=== PATIENT | female | born 1930 | race Two or more races ===

== ENCOUNTER 2017-01-14 20:13 | Emergency (ER) | payer MEDICARE, MEDICAID ==
--- NOTE | 2017-01-15 01:37 | ER Document Report ---
ED Extremity Problem, Lower - General Chief Complaint: Foot Injury Stated Complaint: LEFT FOOT INJURY Notes: The patient is an 86-year-old female, PMHx DM, who presents with left toe pain after a heavy object fell on her left great toe earlier today. She is noticing swelling, but denies open wounds, numbness or tingling. TRAVEL OUTSIDE OF THE [place] IN LAST 30 DAYS: No - Related Data Allergies/Adverse Reactions: Penicillins Allergy (Verified 02/15/16 12:10) Past Medical History - General Information source: Patient - Social History Smoking Status: Never Smoker Family History: DM - Past Medical History Cardiac Medical History: Reports: Hx Congestive Heart Failure - History of CHF; no evidence of CHF on January 2016 echocardiogram., Hx Hypercholesterolemia, Hx Hypertension Denies: Hx DVT, Hx Heart Attack, Hx Pulmonary Embolism Pulmonary Medical History: Denies: Hx Asthma, Hx COPD, Hx Tuberculosis Neurological Medical History: Denies: Hx Seizures Endocrine Medical History: Reports: Hx Diabetes Mellitus Type 1, Hx Diabetes Mellitus Type 2, Hx Hypothyroidism. Denies: Hx Hyperthyroidism Renal/ Medical History: Denies: Hx Peritoneal Dialysis GI Medical History: Denies: Hx Cirrhosis, Hx Gastroesophageal Reflux Disease, Hx Hepatitis Musculoskeltal Medical History: Reports Hx Arthritis Skin Medical History: Denies Hx Eczema, Denies Hx Psoriasis Psychiatric Medical History: Denies: Hx Depression Infectious Medical History: Denies: Hx Hepatitis Past Surgical History: Reports: Hx Section, Hx Kidney (Renal Surgery) - Stent - Immunizations Hx Diphtheria, Pertussis, Tetanus Vaccination: No Hx Pneumococcal Vaccination: 09/28/14 Review of Systems - Review of Systems Notes: REVIEW OF SYSTEMS: CONSTITUTIONAL: -fevers, -chills EENT: -eye pain, -difficulty swallowing, -nasal congestion CARDIOVASCULAR:-chest pain, -syncope. RESPIRATORY: -cough, -SOB GASTROINTESTINAL: -abdominal pain, - nausea, -vomiting, -diarrhea GENITOURINARY: -dysuria, -hematuria MUSCULOSKELETAL: +left great toe pain, -back pain, -neck pain SKIN: -rash or skin lesions. HEMATOLOGIC: -easy bruising or bleeding. LYMPHATIC: -swollen, enlarged glands. NEUROLOGICAL: -altered mental status or loss of consciousness, -headache, - neurologic symptoms PSYCHIATRIC: -anxiety, -depression. ALL OTHER SYSTEMS REVIEWED AND NEGATIVE. Physical Exam - Vital signs Vitals: Temp Pulse Resp BP Pulse Ox 97.6 F 76 18 148/53 H 94 01/15/17 01:54 01/15/17 01:54 01/15/17 01:54 01/15/17 01:54 01/15/17 01:54 - Notes Notes: PHYSICAL EXAMINATION: GENERAL: Well-appearing, well-nourished and in no acute distress. HEAD: Atraumatic, normocephalic. EYES: Pupils equal round and reactive to light, extraocular movements intact, sclera anicteric, conjunctiva are normal. ENT: nares patent, oropharynx clear without exudates. Moist mucous membranes. NECK: Normal range of motion, supple without lymphadenopathy LUNGS: Breath sounds clear to auscultation bilaterally and equal. No wheezes rales or rhonchi. HEART: Regular rate and rhythm without murmurs ABDOMEN: Soft, nontender, normoactive bowel sounds. No guarding, no rebound. No masses appreciated. EXTREMITIES: Left great toe swelling and ecchymosis at distal phalanx. Normal range of motion, no pitting or edema. No cyanosis. NEUROLOGICAL: Cranial nerves grossly intact. Normal speech, normal gait. Normal sensory, motor, and reflex exams. PSYCH: Normal mood, normal affect. SKIN: Warm, Dry, normal turgor, no rashes or lesions noted. Course - Re-evaluation Re-evalutation: Patient with distal left first toe fracture. No open wounds. Instructed daughter and patient about symptomatic treatment and following up with orthopedics. - Vital Signs Vital signs: Temp Pulse Resp BP Pulse Ox 97.6 F 76 18 148/53 H 94 01/15/17 01:54 01/15/17 01:54 01/15/17 01:54 01/15/17 01:54 01/15/17 01:54 - Diagnostic Test Radiology reviewed: Image reviewed, Reports reviewed Radiology results interpreted by me: Fracture of the distal phalanx of the left great toe. Discharge - Discharge Clinical Impression: Toe fracture, left Qualifiers: Encounter type: initial encounter Toe: great toe Fracture type: closed Phalanx : distal Fracture alignment: nondisplaced Qualified Code(s): S92.425A - Nondisplaced fracture of distal phalanx of left great toe, initial encounter for closed fracture Condition: Good Disposition: HOME, SELF-CARE Additional Instructions: Fractured Toe You have fractured your toe. Although this fracture doesn't need a cast or splint, emergency evaluation was needed to assess the straightness of the bones and joints. Reduction ("setting") is necessary for toe fractures which are crooked or twisted. A toe fracture will heal in about three weeks. Usually, the fractured toe is taped to the next toe. The second toe acts as a moving splint to protect the broken one. Ice and elevation help during the first 48 hours. You may need crutches at first if walking is painful. When you begin walking, be careful NOT to do things that hurt. If weight bearing is not comfortable within a few days, you may require a special shoe, walking boot, or cast. Call the doctor or return at once if severe swelling, severe pain, or numbness develop in the toe, or if you suspect you may have re-injured it. Referrals: NANCI LAZO MD [Primary Care Provider] - Follow up as needed NATALIIA CLEVELAND MD [ACTIVE STAFF] - Follow up as needed
[2017-01-15 01:56] VITALS: BP 148/53
== END 2017-01-15 01:54 | disposition home or self-care (01) ==
LOC: ER 20:13
DX: S92.425A Nondisplaced fracture of distal phalanx of left great toe, initial encounter for closed fracture (principal); E11.9 Type 2 diabetes mellitus without complications; M79.675 Pain in left toe(s); M79.89 Other specified soft tissue disorders; W22.8XXA Striking against or struck by other objects, initial encounter
CPT/HCPCS: 99283

== ENCOUNTER 2017-05-10 12:53 | Observation (INO) | payer MEDICARE, MEDICAID ==
--- NOTE | 2017-05-10 13:16 | ER Document Report ---
ED Medical Screen (RME) - General Chief Complaint: Shortness Of Breath Stated Complaint: DIFFICULTY BREATHING Time Seen by Provider: 05/10/17 13:14 Mode of Arrival: Wheelchair Information source: Patient - p TRAVEL OUTSIDE OF THE [place] IN LAST 30 DAYS: No - HPI Patient complains to provider of: sob Onset: Yesterday - pt with h/o CHF with SOB and dyspnea starting yesterday with exacerbation today - Related Data Allergies/Adverse Reactions: Penicillins Allergy (Verified 02/15/16 12:10) Past Medical History - Social History Chew tobacco use (# tins/day): No Frequency of alcohol use: None Drug Abuse: None - Past Medical History Cardiac Medical History: Reports: Hx Congestive Heart Failure - History of CHF; no evidence of CHF on January 2016 echocardiogram., Hx Hypercholesterolemia, Hx Hypertension Denies: Hx DVT, Hx Heart Attack, Hx Pulmonary Embolism Pulmonary Medical History: Denies: Hx Asthma, Hx COPD, Hx Tuberculosis Neurological Medical History: Denies: Hx Seizures Endocrine Medical History: Reports: Hx Diabetes Mellitus Type 1, Hx Diabetes Mellitus Type 2, Hx Hypothyroidism. Denies: Hx Hyperthyroidism Renal/ Medical History: Denies: Hx Peritoneal Dialysis GI Medical History: Denies: Hx Cirrhosis, Hx Gastroesophageal Reflux Disease, Hx Hepatitis Musculoskeltal Medical History: Reports Hx Arthritis Skin Medical History: Denies Hx Eczema, Denies Hx Psoriasis Psychiatric Medical History: Denies: Hx Depression Infectious Medical History: Denies: Hx Hepatitis Past Surgical History: Reports: Hx Section, Hx Kidney (Renal Surgery) - Stent - Immunizations Hx Diphtheria, Pertussis, Tetanus Vaccination: No Physical Exam - Vital signs Vitals: Temp Pulse Resp BP Pulse Ox 97.7 F 68 40 H 181/72 H 96 05/10/17 12:54 05/10/17 12:54 05/10/17 12:54 05/10/17 12:54 05/10/17 12:54 Course - Vital Signs Vital signs: Temp Pulse Resp BP Pulse Ox 97.7 F 68 40 H 181/72 H 96 05/10/17 12:54 05/10/17 12:54 05/10/17 12:54 05/10/17 12:54 05/10/17 12:54
--- NOTE | 2017-05-10 13:27 | ER Document Report ---
ED Respiratory Problem - General Chief Complaint: Shortness Of Breath Stated Complaint: DIFFICULTY BREATHING Time Seen by Provider: 05/10/17 13:14 Mode of Arrival: Wheelchair Information source: Patient TRAVEL OUTSIDE OF THE [place] IN LAST 30 DAYS: No - HPI Patient complains to provider of: Short of breath Onset: This afternoon Duration: Better Initiating Event: Other - @ [facility], WAS IN [facility] Quality of pain: No pain Context: Hx CHF Associated symptoms: Extertional dyspnea, Short of breath. denies: Cough, Fever - Related Data Allergies/Adverse Reactions: Penicillins Allergy (Verified 05/10/17 13:56) Home Medications: Current Home Medications Aspirin [Aspirin EC] 81 mg PO DAILY 05/10/17 [History] Glimepiride [Glimepiride] 1 mg PO DAILY 05/10/17 [History] Levothyroxine Sodium [Synthroid 0.1 mg Tablet] 88 mcg PO DAILY 05/10/17 [History ] Rosuvastatin Calcium [Crestor 20 mg Tablet] 20 mg PO DAILY 05/10/17 [History] Past Medical History - General Information source: Patient - p - Social History Smoking Status: Never Smoker Chew tobacco use (# tins/day): No Frequency of alcohol use: None Drug Abuse: None Family History: DM - Past Medical History Cardiac Medical History: Reports: Hx Congestive Heart Failure - History of CHF; no evidence of CHF on January 2016 echocardiogram., Hx Hypercholesterolemia, Hx Hypertension Denies: Hx DVT, Hx Heart Attack, Hx Pulmonary Embolism Pulmonary Medical History: Denies: Hx Asthma, Hx COPD, Hx Tuberculosis Neurological Medical History: Denies: Hx Seizures Endocrine Medical History: Reports: Hx Diabetes Mellitus Type 1, Hx Diabetes Mellitus Type 2, Hx Hypothyroidism. Denies: Hx Hyperthyroidism Renal/ Medical History: Denies: Hx Peritoneal Dialysis GI Medical History: Denies: Hx Cirrhosis, Hx Gastroesophageal Reflux Disease, Hx Hepatitis Musculoskeltal Medical History: Reports Hx Arthritis Skin Medical History: Denies Hx Eczema, Denies Hx Psoriasis Psychiatric Medical History: Denies: Hx Depression Infectious Medical History: Denies: Hx Hepatitis Past Surgical History: Reports: Hx Section, Hx Kidney (Renal Surgery) - Stent - Immunizations Hx Diphtheria, Pertussis, Tetanus Vaccination: No Hx Pneumococcal Vaccination: 09/28/14 Review of Systems - Review of Systems Constitutional: No symptoms reported. denies: Diaphoresis EENT: No symptoms reported Cardiovascular: See HPI, Dyspnea Respiratory: See HPI, Short of breath Gastrointestinal: No symptoms reported Female Genitourinary: Post menopausal Musculoskeletal: No symptoms reported Skin: No symptoms reported Neurological/Psychological: No symptoms reported Physical Exam - Vital signs Vitals: Temp Pulse Resp BP Pulse Ox 97.7 F 68 40 H 181/72 H 96 05/10/17 12:54 05/10/17 12:54 05/10/17 12:54 05/10/17 12:54 05/10/17 12:54 Interpretation: Tachypneic. No: Tachycardic, Hypoxic, Febrile - General General appearance: Alert, Anxious In distress: None - Respiratory Respiratory status: No respiratory distress, Tachypnea Chest status: Nontender Breath sounds: Rales - FEW, BIBASILAR. No: Wheezing - Cardiovascular Rhythm: Regular Heart sounds: Normal auscultation Murmur: No - Abdominal Inspection: Normal Distension: No distension Bowel sounds: Hypoactive - Extremities General upper extremity: Normal inspection General lower extremity: Edema - 1+ BILAT.. No: Normal inspection - Neurological Neuro grossly intact: Yes Cognition: Normal Orientation: AAOx4 - Psychological Associated symptoms: Normal affect, Normal mood - Skin Skin Temperature: Warm Skin Moisture: Dry Skin Color: Normal Skin Turgor: Elastic Course - Vital Signs Vital signs: Temp Pulse Resp BP Pulse Ox 97.7 F 68 23 H 154/66 H 95 05/10/17 12:54 05/10/17 12:54 05/10/17 13:54 05/10/17 13:54 05/10/17 13:54 - Laboratory Result Diagrams: 05/10/17 13:20 05/10/17 13:20 Laboratory results interpreted by me: 05/10/17 05/10/17 05/10/17 13:20 13:20 13:20 Hgb 11.6 L MCHC 31.6 L RDW 15.5 H BUN 38 H Est GFR (Non-Af Amer) 51 L Glucose 145 H NT-Pro-B Natriuret Pep 1720 H - Diagnostic Test Radiology reviewed: Image reviewed, Reports reviewed - EKG Interpretation by Me EKG shows normal: Sinus rhythm, Rose, Intervals, QRS Complexes, ST-T Waves Rate: Normal Rhythm: NSR - Consults DR. CRAIG Time consulted: 15:42 Consulted provider: will come to ER Discharge - Discharge Clinical Impression: CHF (congestive heart failure) Qualifiers: Congestive heart failure type: unspecified congestive heart failure type Congestive heart failure chronicity: acute on chronic Qualified Code(s): I50.9 - Heart failure, unspecified Dyspnea Qualifiers: Dyspnea type: shortness of breath Qualified Code(s): R06.02 - Shortness of breath; R06.00 - Dyspnea, unspecified; R06.01 - Orthopnea Condition: Fair Disposition: ADMITTED OBSERVATION Admitting Provider: Hospitalist Unit Admitted: Telemetry
[2017-05-10 13:34] LABS: ABSOLUTE BASOPHILS # (AUTO) 0.1 10^3/uL (0.0-0.2); ABSOLUTE EOSINOPHILS # (AUTO) 0.1 10^3/uL (0.0-0.6); ABSOLUTE LYMPHOCYTES (AUTO) 1.1 10^3/uL (0.5-4.7); ABSOLUTE MONOCYTES (AUTO) 0.7 10^3/uL (0.1-1.4); ABSOLUTE NEUT (AUTO) 4.4 10^3/uL (1.7-8.2); BASOPHILS % (AUTO) 1.2 % (0-2); EOSINOPHILS % (AUTO) 2.2 % (0-6); HEMATOCRIT 36.9 % (36.0-47.0); HEMOGLOBIN 11.6 g/dL (12.0-15.5); HGB HCT DIFFERENCE -2.1; LYMPHOCYTES % (AUTO) 17.6 % (13-45); MEAN CORPUSCULAR HEMOGLOBIN 27.7 pg (27.0-33.4); MEAN CORPUSCULAR HGB CONC 31.6 g/dL (32.0-36.0); MEAN CORPUSCULAR VOLUME 88 fl (80-97); MONOCYTES % (AUTO) 10.9 % (3-13); RED BLOOD COUNT 4.21 10^6/uL (3.72-5.28); RED CELL DISTRIBUTION WIDTH 15.5 % (11.5-14.0); SEGMENTED NEUTROPHILS % (AUTO) 68.1 % (42-78); WHITE BLOOD COUNT 6.5 10^3/uL (4.0-10.5)
[2017-05-10 13:36] LABS: APPEARANCE,URINE SLIGHTLY-CLOUDY; BILIRUBIN,URINE NEGATIVE (NEGATIVE); GLUCOSE, URINE NEGATIVE (NEGATIVE); KETONES,URINE NEGATIVE (NEGATIVE); LEUKOCYTE ESTERASE,URINE NEGATIVE (NEGATIVE); NITRITE,URINE NEGATIVE (NEGATIVE); PROTEIN,URINE NEGATIVE (NEGATIVE); URINE SPECIFIC GRAVITY 1.005; UROBILINOGEN,URINE NEGATIVE mg/dL (<2.0)
[2017-05-10 13:56] LABS: ALANINE AMINOTRANSFERASE 25 U/L (9-52); ALBUMIN 4.4 g/dL (3.5-5.0); ALKALINE PHOSPHATASE 55 U/L (38-126); ANION GAP 11 (5-19); ASPARTATE AMINO TRANSFERASE 23 U/L (14-36); BILIRUBIN,DIRECT 0.4 mg/dL (0.0-0.4); BILIRUBIN,TOTAL 0.6 mg/dL (0.2-1.3); BLOOD UREA NITROGEN 38 mg/dL (7-20); CARBON DIOXIDE 27 mmol/L (22-30); CHLORIDE 102 mmol/L (98-107); CREATININE RESULT 1.02 mg/dL (0.52-1.25); GLUCOSE 145 mg/dL (75-110); POTASSIUM 4.7 mmol/L (3.6-5.0); SODIUM 139.8 mmol/L (137-145); TOTAL PROTEIN 8.1 g/dL (6.3-8.2)
--- NOTE | 2017-05-10 13:57 | RADIOLOGY REPORT (SQ) ---
EXAM DESCRIPTION: CHEST SINGLE VIEW COMPLETED DATE/TIME: 05/10/2017 1:48 pm REASON FOR STUDY: dyspnea COMPARISON: June 2016 EXAM PARAMETERS: NUMBER OF VIEWS: One view. TECHNIQUE: Single frontal radiographic view of the chest acquired. RADIATION DOSE: NA LIMITATIONS: Patient has made a shallow inspiration. FINDINGS: LUNGS AND PLEURA: No opacities, masses or pneumothorax. No pleural effusion. MEDIASTINUM AND HILAR STRUCTURES: No masses. Contour normal. HEART AND VASCULAR STRUCTURES: Cardiac silhouette is enlarged. Tortuous thoracic aorta is again iden tified. BONES: No acute findings. HARDWARE: None in the chest. OTHER: No other significant finding. IMPRESSION: Cardiomegaly. No acute changes. TECHNICAL DOCUMENTATION: JOB ID: [id number]
[2017-05-10] MEDS ORDERED: ACETAMINOPHEN 325 MG TABLET PO PRN (16:51)
[2017-05-10] MEDS ORDERED: IPRATROPIUM/ALBUTEROL 0.5-2.5 MG/3 ML AMPUL NEB PRN (16:51)
[2017-05-10] MEDS ORDERED: MAGNESIUM HYDROXIDE SUSP 30 ML UDCUP PO PRN (16:51)
[2017-05-10] MEDS ORDERED: ONDANSETRON HCL INJ/PF 4 MG/2 ML SDV IV PRN (16:51)
[2017-05-10] MEDS ORDERED: INSULIN LISPRO 100 UNIT/ML 3 ML VIAL SUBCUT PRN (17:20)
[2017-05-10] MEDS ORDERED: DEXTROSE 40% GEL 15 GM TUBE PO PRN ×2 (17:20)
[2017-05-10] MEDS ORDERED: GLUCAGON,HUMAN RECOMB 1 MG INJ IM PRN (17:20)
[2017-05-10] MEDS ORDERED: DEXTROSE 50%-WATER 25 GM/50 ML DISP.SYRIN IV PRN ×2 (17:20)
--- NOTE | 2017-05-10 17:27 | PDOC H&P ---
History of Present Illness Admission Date/PCP: 05/10/17 16:18 NANCI LAZO MD Patient complains of: sudden onset SOA History of Present Illness: CHRIS SAM is a 87 year old female presents from religion with sudden onset of heat in center of her chest "like I was on fire" radiating into her throat/ neck with asct'd diaphoresis and SOA with increased WOB. she denies palpitations, fevers/chills, cough, congestion, arm pain, numb/tingling. she had a negative stress test last year. she reports recent travel to [facility] by cruise ship in March, otherwise she is normally quite active doing her own cooking, cleaning and shopping in fact she was at the beach for hours [place] evening to witness several baptisms with her religion. she carries a diagnosis of and previous admissions for CHF but the only 2 echo we have on file show well preserved EF and LV function but do show at least mod TR and mod- sv pulm HTN. She has a chronically elevated BNP as a result, and is actually lower than her baseline today. due to her advanced age and risk factors, we were asked to admit for observation. Her CXR shows nothing acute, ecg no changes, no troponin completed and rest of her labs are at baseline or better. Past Medical History Cardiac Medical History: Reports: Congestive Heart Failure - History of CHF; no evidence of CHF on January 2016 or 2012 echocardiogram., Hyperlipidema, Hypertension Denies: DVT, Myocardial Infarction, Pulmonary Embolism Pulmonary Medical History: Denies: Asthma, Chronic Obstructive Pulmonary Disease (COPD), Tuberculosis Neurological Medical History: Denies: Seizures Endocrine Medical History: Reports: Diabetes Mellitus Type 1, Diabetes Mellitus Type 2, Hypothyroidism Denies: Hyperthyroidism GI Medical History: Denies: Cirrhosis, Gastroesophageal Reflux Disease, Hepatitis Musculoskeltal Medical History: Reports: Arthritis Skin Medical History: Denies: Eczema, Psoriasis Psychiatric Medical History: Denies: Depression Past Surgical History Past Surgical History: Reports: Section Social History Information Source: Patient Smoking Status: Never Smoker Frequency of Alcohol Use: None Hx Recreational Drug Use: No Drugs: None Hx Prescription Drug Abuse: No - Advance Directive Resuscitation Status: Full Code Family History Family History: DM Parental Family History Reviewed: Yes Children Family History Reviewed: Yes Sibling(s) Family History Reviewed.: Yes Medication/Allergy Home Medications: Benazepril HCl [Lotensin 40 mg Tablet] 1 tab PO DAILY 07/29/13 Cholecalciferol (Vitamin D3) [Vitamin D3 2000 unit Capsule] 2,000 unit PO DAILY 07/29/13 Linagliptin [Tradjenta] 5 mg PO DAILY 07/29/13 Metoprolol Tartrate [Lopressor 100 mg Tablet] 100 mg PO BID 07/29/13 Rosuvastatin Calcium [Crestor 20 mg Tablet] 20 mg PO DAILY 07/29/13 Ferrous Sulfate [Feosol 325 mg Tablet] 325 mg PO BID 02/15/16 Fish Oil/Dha/Epa [Fish Oil 1,200 mg Fish Oil] 1 each PO DAILY 02/15/16 Furosemide [Lasix 20 mg Tablet] 20 mg PO QAM 02/15/16 Multivit with Calcium,Iron,Min [Women's Daily Formula] 1 each PO DAILY 02/15/16 Aspirin/Dipyridamole [Aggrenox 25 mg/200 mg Capsule SA] 1 cap.sr PO Q12 #60 cpmp.12hr 02/17/16 Hydralazine HCl [Apresoline 50 mg Tablet] 1 tab PO BID 07/03/16 Insulin Detemir [Levemir Flextouch] 15 unit SQ DAILY #0 07/04/16 Aspirin [Aspirin EC] 81 mg PO DAILY 05/10/17 Glimepiride [Glimepiride] 1 mg PO DAILY 05/10/17 Levothyroxine Sodium [Synthroid 0.1 mg Tablet] 88 mcg PO DAILY 05/10/17 Rosuvastatin Calcium [Crestor 20 mg Tablet] 20 mg PO DAILY 05/10/17 Allergies/Adverse Reactions: Penicillins Allergy (Verified 05/10/17 13:56) Review of Systems All systems: reviewed and no additional remarkable complaints except as stated - alll systems reviewed, see HPI, remaining systems negative Physical Exam Vital Signs: Temp Pulse Resp BP Pulse Ox 98 F 68 19 137/90 H 98 05/10/17 16:01 05/10/17 12:54 05/10/17 16:01 05/10/17 16:01 05/10/17 17:00 General appearance: PRESENT: no acute distress, well-developed, well-nourished Head exam: PRESENT: atraumatic, normocephalic Eye exam: PRESENT: EOMI. ABSENT: conjunctival injection, scleral icterus Mouth exam: PRESENT: moist Neck exam: ABSENT: carotid bruit, JVD, lymphadenopathy Respiratory exam: PRESENT: clear to auscultation abhishek. ABSENT: accessory muscle use Cardiovascular exam: PRESENT: RRR. 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 ABSENT: organolmegaly, tenderness Extremities exam: PRESENT: full ROM. ABSENT: calf tenderness, pedal edema Musculoskeletal exam: PRESENT: full ROM. ABSENT: tenderness Neurological exam: PRESENT: alert, awake, oriented to person, oriented to place , oriented to time, oriented to situation Psychiatric exam: PRESENT: appropriate affect, normal mood Skin exam: PRESENT: dry, warm Results Laboratory Results: 05/10/17 13:20 05/10/17 13:20 MCV 88 fl (80-97) 05/10/17 13:20 MCH 27.7 pg (27.0-33.4) 05/10/17 13:20 MCHC 31.6 g/dL (32.0-36.0) L 05/10/17 13:20 RDW 15.5 % (11.5-14.0) H 05/10/17 13:20 Seg Neutrophils % 68.1 % (42-78) 05/10/17 13:20 Lymphocytes % 17.6 % (13-45) 05/10/17 13:20 Monocytes % 10.9 % (3-13) 05/10/17 13:20 Eosinophils % 2.2 % (0-6) 05/10/17 13:20 Basophils % 1.2 % (0-2) 05/10/17 13:20 Absolute Neutrophils 4.4 10^3/uL (1.7-8.2) 05/10/17 13:20 Absolute Lymphocytes 1.1 10^3/uL (0.5-4.7) 05/10/17 13:20 Absolute Monocytes 0.7 10^3/uL (0.1-1.4) 05/10/17 13:20 Absolute Eosinophils 0.1 10^3/uL (0.0-0.6) 05/10/17 13:20 Absolute Basophils 0.1 10^3/uL (0.0-0.2) 05/10/17 13:20 Chloride 102 mmol/L (98-107) 05/10/17 13:20 Carbon Dioxide 27 mmol/L (22-30) 05/10/17 13:20 Anion Gap 11 (5-19) 05/10/17 13:20 Est GFR ( Amer) > 60 (>60) 05/10/17 13:20 Est GFR (Non-Af Amer) 51 (>60) L 05/10/17 13:20 Glucose 145 mg/dL (75-110) H 05/10/17 13:20 Calcium 10.0 mg/dL (8.4-10.2) 05/10/17 13:20 Total Bilirubin 0.6 mg/dL (0.2-1.3) 05/10/17 13:20 AST 23 U/L (14-36) 05/10/17 13:20 ALT 25 U/L (9-52) 05/10/17 13:20 Alkaline Phosphatase 55 U/L (38-126) 05/10/17 13:20 Total Protein 8.1 g/dL (6.3-8.2) 05/10/17 13:20 Albumin 4.4 g/dL (3.5-5.0) 05/10/17 13:20 Urine Color STRAW 05/10/17 13:20 Urine Appearance SLIGHTLY-CLOUDY 05/10/17 13:20 Urine pH 7.0 (5.0-9.0) 05/10/17 13:20 Ur Specific [place] 1.005 05/10/17 13:20 Urine Protein NEGATIVE mg/dL (NEGATIVE) 05/10/17 13:20 Urine Glucose (UA) NEGATIVE mg/dL (NEGATIVE) 05/10/17 13:20 Urine Ketones NEGATIVE mg/dL (NEGATIVE) 05/10/17 13:20 Urine Blood NEGATIVE (NEGATIVE) 05/10/17 13:20 Urine Nitrite NEGATIVE (NEGATIVE) 05/10/17 13:20 Ur Leukocyte Esterase NEGATIVE (NEGATIVE) 05/10/17 13:20 Urine WBC (Auto) 0 /HPF 05/10/17 13:20 Urine RBC (Auto) 1 /HPF 05/10/17 13:20 05/10/17 13:20 NT-Pro-B Natriuret Pep 1720 H EKG Comments: ecg shows NSR, HR 78, QTc 415 Impressions: Chest X-Ray 05/10/17 13:09 IMPRESSION: Cardiomegaly. No acute changes. Status: Image reviewed by me - agree with rads Assessment & Plan - Diagnosis (1) Dyspnea Qualifiers: Dyspnea type: shortness of breath Qualified Code(s): R06.02 - Shortness of breath; R06.00 - Dyspnea, unspecified; R06.01 - Orthopnea Is this a current diagnosis for this admission?: YesPlan: no clear etiology; will ck ddimer due to recent travel and if elevated then CTA chest. trend enzymes through the night to r/o ischemic event. resume her usual home lasix, already given large dose in ED. (2) Diabetes Qualifiers: Diabetes mellitus type: type 2 Diabetes mellitus complication status: with circulatory complication Diabetes mellitus complication detail: with other circulatory complications Diabetes mellitus termite exterminator insulin use: with termite exterminator use Qualified Code(s): E11.59 - Type 2 diabetes mellitus with other circulatory complications; Z79.4 - superintendent terminal (current) use of insulin Is this a current diagnosis for this admission?: YesPlan: cover with SSI and continue her long acting insulin (3) Anemia Qualifiers: Anemia type: unspecified type Qualified Code(s): D64.9 - Anemia, unspecified Is this a current diagnosis for this admission?: YesPlan: chronic, H/H stable (4) CKD (chronic kidney disease), stage III Is this a current diagnosis for this admission?: YesPlan: Scr at baseline (5) Hyperlipidemia Qualifiers: Hyperlipidemia type: unspecified Qualified Code(s): E78.5 - Hyperlipidemia, unspecified Is this a current diagnosis for this admission?: YesPlan: chronic; continue home statin (6) Hypothyroid Qualifiers: Hypothyroidism type: unspecified Qualified Code(s): E03.9 - Hypothyroidism, unspecified Is this a current diagnosis for this admission?: YesPlan: continue hormone replacement - Time Time Spent: 50 to 70 Minutes Medications reviewed and adjusted accordingly: Yes
[2017-05-10] MEDS ORDERED: FERROUS SULFATE 325 MG TABLET PO SCH (18:00)
--- NOTE | 2017-05-10 20:05 | RADIOLOGY REPORT (SQ) ---
EXAM DESCRIPTION: CTA CHEST COMPLETED DATE/TIME: 05/10/2017 7:07 pm REASON FOR STUDY: dyspnea, eval for PE D64.9 ANEMIA, UNSPECIFIED COMPARISON: None. TECHNIQUE: CT scan of the chest performed using helical scanning technique with dynamic intravenous contrast injection. Images reviewed with lung, soft tissue and bone windows. Reconstructed coronal and sagittal MPR images reviewed. Additional 3 dimensional post-processing performed to develop Maximal Intensity Projection images (IA P). All images stored on PACS. All CT scanners at this facility use dose modulation, iterative reconstruction, and/or weight based d osing when appropriate to reduce radiation dose to as low as reasonably achievable (ALARA). [facility]: Dose Right [facility]: CareDose [facility]: Dose Right [facility]: Teradose 4D [facility]: [email or web address] CONTRAST TYPE AND DOSE: contrast/concentration: Isovue 370.00 mg/ml; Total Contrast Delivered: 81.0 ml; Total Saline Delivered: 97.0 ml RENAL FUNCTION: GFR > 60. RADIATION DOSE: Up-to-date CT equipment and radiation dose reduction techniques were employed. CTDIv ol: 14.6 - 19.8 mGy. DLP: 532 mGy-cm. . LIMITATIONS: None. FINDINGS: LUNGS AND PLEURA: No masses, infiltrates, pneumothorax. No pleural effusions, calcificati ons. AORTA AND GREAT VESSELS: No aneurysm or dissection. HEART: No pericardial effusion. PULMONARY ARTERIES: Tiny area of chronic appearing embolus in the central lumen of the right lower lo be medial and posterior basilar pulmonary arterial segmental branch. No acute appearing emboli visua lized in the main pulmonary arteries or the segmental branches. HILAR AND MEDIASTINAL STRUCTURES: No identified masses or abnormal nodes. HARDWARE: None in the chest. UPPER ABDOMEN: Calcified gallstones. Limited exam. THYROID AND OTHER SOFT TISSUES: No masses. No adenopathy. BONES: No acute or significant finding. 3D MIPS: Confirm above findings. OTHER: No other significant finding. IMPRESSION: Tiny area of chronic appearing embolus in the central lumen of the right lower lobe medi al and posterior basilar segmental pulmonary arterial branch. No acute appearing emboli visualized i n the main pulmonary arteries or the segmental branches. TECHNICAL DOCUMENTATION: JOB ID: [id number] Quality ID # [id number]: Final reports with documentation of one or more dose reduction techniques (e.g., Au tomated exposure control, adjustment of the mA and/or kV according to patient size, use of iterative reconstruction technique) 2010 [employer]- All Rights Reserved
[2017-05-10] MEDS: ASPIRIN/DIPYRIDAMOLE 25-200 MG 1 CAP.SR CPMP.12HR PO SCH (21:06)
[2017-05-10] MEDS: METOPROLOL TARTRATE 100 MG TABLET PO SCH (21:06)
[2017-05-10] MEDS: HYDRALAZINE HCL 50 MG TABLET PO SCH (21:06)
--- NOTE | 2017-05-10 22:09 | Progress Note ---
Provider Note Provider Note: May 10, 2017, 9:20 PM: CT angiogram of the chest results discussed by phone with interpreting radiologist, Dr. Dugan. He stated this was a very good quality study and he was quite confident that the findings were consistent with 2 tiny chronic pulmonary emboli, with no evidence of acute pulmonary emboli.
--- NOTE | 2017-05-10 23:12 | EKG REPORT ---
SEVERITY:- NORMAL ECG - SINUS RHYTHM : Confirmed by: Christy Marques 10-May-2017 23:12:01
[2017-05-11 06:38] LABS: HEMATOCRIT 34.4 % (36.0-47.0); HEMOGLOBIN 11.2 g/dL (12.0-15.5); HGB HCT DIFFERENCE -0.8; MEAN CORPUSCULAR HEMOGLOBIN 28.1 pg (27.0-33.4); MEAN CORPUSCULAR HGB CONC 32.5 g/dL (32.0-36.0); MEAN CORPUSCULAR VOLUME 87 fl (80-97); RED BLOOD COUNT 3.97 10^6/uL (3.72-5.28); RED CELL DISTRIBUTION WIDTH 15.3 % (11.5-14.0); WHITE BLOOD COUNT 5.4 10^3/uL (4.0-10.5)
[2017-05-11 06:48] LABS: ANION GAP 9 (5-19); BLOOD UREA NITROGEN 32 mg/dL (7-20); CALCIUM 9.4 mg/dL (8.4-10.2); CARBON DIOXIDE 29 mmol/L (22-30); CHLORIDE 104 mmol/L (98-107); CREATININE RESULT 0.98 mg/dL (0.52-1.25); GLUCOSE 95 mg/dL (75-110); SODIUM 141.7 mmol/L (137-145)
[2017-05-11] MEDS ORDERED: FUROSEMIDE 20 MG TABLET PO SCH (08:00)
--- NOTE | 2017-05-11 08:00 | Physician Advisory Note ---
Physician Advisor ProgressNote .: Pursuant to the plan for [facility], I have reviewed the medical record for this patient. Physician Advisor Statement: Documentation in H&P of attending thought process is excellent. Attending, please consider documentin. Most likely cause of SOB. 2. Specific type chronic CHF: "chr valvular CHF due to sev MR/mod TR"? "chr cor pulmonale"? (or "suspect diastolic/systolic" ...?) 3. If pt not safe for d/c today, please document explicitly the reasons & your concerns (Medical necessity). Status: appropriately Outpt Obs initially for SOB of unclear etiology. Discussion: 87yo w/HTN, HLD, DM type __, hypothyroidism, mod TR, severe MR, & sev pulm HTN on ECHO, chronic elevated BNP - came in 8/13 PM due to SOB, w/tachypnea of 40, BP 181/72, HR 68 (on high dose beta-rubina), anxiety, sensation of heat in chest, diaphoresis, reported increased work of breathing. ED dr reported initially pt w/few bibasilar rales, & 1+ edema BLEs, BNP 1720, dx 'd suspected CHF. MAR & Orders section do not show any Lasix given in ED, but H&P reports large dose was given there. For admitting dr, pt exam CTAB w/no BLE edema. BNP < baseline, CXR =no acute change, Hgb 11.6, WBC 6.5, BUN 38 w/Cr 1.02, glc 145. Overnight, CT-A showed 2 chronic PEs, no acute PE. Tachypnea has resolved. Thanks! CK
[2017-05-11] MEDS ORDERED: GLIMEPIRIDE 1 MG TABLET PO SCH (10:00)
[2017-05-11] MEDS ORDERED: LEVOTHYROXINE SODIUM 0.1 MG TABLET PO SCH ×2 (10:00→12:00)
[2017-05-11] MEDS ORDERED: INSULIN DETEMIR 100 UNIT/ML 3 ML PEN SUBCUT SCH ×2 (10:00→11:00)
[2017-05-11] MEDS ORDERED: ENOXAPARIN SODIUM INJ 40 MG/0.4 ML DISP.SYRIN SUBCUT SCH (10:00)
[2017-05-11] MEDS ORDERED: BENAZEPRIL HCL 20 MG TABLET PO SCH (10:00)
[2017-05-11] MEDS: METOPROLOL TARTRATE 100 MG TABLET PO SCH (10:11)
[2017-05-11] MEDS: HYDRALAZINE HCL 50 MG TABLET PO SCH (10:12)
[2017-05-11] MEDS: ASPIRIN/DIPYRIDAMOLE 25-200 MG 1 CAP.SR CPMP.12HR PO SCH (10:13)
[2017-05-11] MEDS ORDERED: ONDANSETRON HCL INJ/PF 4 MG/2 ML SDV IV PRN (11:21)
[2017-05-11] MEDS ORDERED: MAGNESIUM HYDROXIDE SUSP 30 ML UDCUP PO PRN (11:22)
[2017-05-11] MEDS ORDERED: APIXABAN 5 MG TABLET PO ONE (11:30)
[2017-05-11] MEDS ORDERED: FERROUS SULFATE 325 MG TABLET PO SCH (12:00)
[2017-05-11 14:16] LABS: APPEARANCE,URINE CLEAR; BILIRUBIN,URINE NEGATIVE (NEGATIVE); GLUCOSE, URINE NEGATIVE (NEGATIVE); KETONES,URINE NEGATIVE (NEGATIVE); LEUKOCYTE ESTERASE,URINE NEGATIVE (NEGATIVE); NITRITE,URINE NEGATIVE (NEGATIVE); PROTEIN,URINE NEGATIVE (NEGATIVE); URINE SPECIFIC GRAVITY 1.031; UROBILINOGEN,URINE NEGATIVE mg/dL (<2.0)
[2017-05-11 15:49] VITALS: BP 118/42
--- NOTE | 2017-05-11 16:17 | PDOC DISCHARGE SUMMARY ---
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 hypertension Is this a current diagnosis for this admission?: Yes (3) CHF (congestive heart failure) Is this a current diagnosis for this admission?: YesSummary: chronic diastolic (4) Diabetes Is this a current diagnosis for this admission?: Yes (5) Anemia Is this a current diagnosis for this admission?: Yes (6) CKD (chronic kidney disease), stage III Is this a current diagnosis for this admission?: Yes (7) Diabetes mellitus type 1 Is this a current diagnosis for this admission?: Yes (8) History of TIA (transient ischemic attack) Is this a current diagnosis for this admission?: Yes (9) Hyperlipidemia Is this a current diagnosis for this admission?: Yes (10) Hypothyroid Is this a current diagnosis for this admission?: Yes - Additional Information Resuscitation Status: Full Code Discharge Diet: Cardiac, Diabetic Discharge Activity: Activity As Tolerated, Balance Activity w/Rest, Slowly Increase Activity, Supervised Activity, Weigh Daily Home Medications: Apixaban [Eliquis 5 mg Tablet] 5 mg PO BID #74 tablet 05/11/17 Aspirin/Dipyridamole [Aggrenox 25 mg-200 mg Capsule] 1 each PO Q12 05/11/17 Benazepril HCl [Lotensin] 40 mg PO DAILY 05/11/17 Cholecalciferol (Vitamin D3) [Vitamin D3 2000 unit Tablet] 2,000 unit PO MOWEFR@ 2200 05/11/17 Ferrous Sulfate [Iron] 325 mg PO DAILY 05/11/17 Fish Oil 600mg 1 ea PO SUTUTHSA@1000 05/11/17 Furosemide [Lasix 20 mg Tablet] 20 mg PO QAM 05/11/17 Glimepiride [Amaryl 1 mg Tablet] 1 mg PO DAILY 05/11/17 Hydralazine HCl [Apresoline 50 mg Tablet] 50 mg PO Q12 05/11/17 Insulin Detemir [Levemir Flextouch] 12 unit SQ DAILY 05/11/17 Levothyroxine Sodium [Synthroid 0.1 mg Tablet] 0.1 mg PO DAILY 05/11/17 Metoprolol Tartrate [Lopressor 100 mg Tablet] 100 mg PO Q12 05/11/17 Multivitamin [Tab-A-Charu (Multiple Vitamin) Tablet] 1 tab PO DAILY 05/11/17 Rosuvastatin Calcium [Crestor 20 mg Tablet] 20 mg PO QHS 05/11/17 History of Present Illness History of Present Illness: CHRIS SAM is a 87 year old female is a 87 year old female presents from [employer] with sudden onset of heat in center of her chest "like I was on fire" radiating into her throat/neck with asct'd diaphoresis and SOA with increased WOB. she denies palpitations, fevers/chills, cough, congestion, arm pain, numb/ tingling. she had a negative stress test last year. she reports recent travel to the [facility] by cruise ship in March, otherwise she is normally quite active doing her own cooking, cleaning and shopping in fact she was [place] the beach for hours [place] evening to witness several baptisms with her synagogue. she carries a diagnosis of and previous admissions for CHF but the only 2 echo we have on file show well preserved EF and LV function but do show at least mod TR and mod - sv pulm HTN. She has a chronically elevated BNP as a result, and is actually lower than her baseline today. due to her advanced age and risk factors, we were asked to admit for observation. Her CXR shows nothing acute, ecg no changes, no troponin completed and rest of her labs are at baseline or better. Hospital Course Hospital Course: Patient presented for acute chest pain and shortness of breath. Troponins ruled out for ACS. Patient found on CTA to have chronic PEs. Patient initially started on lovenox and given first dose of eliquis. Patient 2 daughters are at bedside as is a granddaughter. Patient and family deny any history of bleeding, GI bleed, ulcer, indigestion, or rectal bleeding. They do state that mother is non-compliant with walker by choice, and not due to memory difficulties, and does occasionally fall. I discussed with them at great length the risk of ICH and subdural if a fall occurs. Patient reports she will use her walker upon discharge. Patient was seen by PT prior to DC who recommended homehealth PT, which was established for patient prior to DC. Patient also had an appointment with Dr. Lazo and Dr. Baker set up prior to DC. Physical Exam Vital Signs: Temp Pulse Resp BP Pulse Ox 98.4 F 64 18 118/42 L 95 05/11/17 15:48 05/11/17 15:48 05/11/17 15:48 05/11/17 15:48 05/11/17 15:48 Intake & Output 05/10/17 05/11/17 05/12/17 06:59 06:59 06:59 Intake Total 150 Output Total 0 Balance 150 Weight 70.5 kg Exam: GENERAL: No acute distress, A+Ox3 HEENT: Conjunctiva clear, nonicteric, moist mucous membranes, no JVD, midline trachea RESPIRATORY: Clear to auscultation bilaterally CARDIAC: Regular rate and rhythm, no murmurs/gallops/rubs ABDOMEN:soft, ND, NTTP, active bowel sounds, no rebound, no rigidity, no guarding EXTREMETIES: vericose veins, no edema, no cyanosis, no clubbing NEUROLOGIC: Alert, oriented to person, place, time, CN's grossly intact, no focal deficits PSYCH: Normal mood and affect Results Laboratory Results: 05/11/17 06:25 05/11/17 06:25 05/11/17 05/11/17 05/11/17 06:25 06:25 13:05 WBC 5.4 RBC 3.97 Hgb 11.2 L Hct 34.4 L MCV 87 MCH 28.1 MCHC 32.5 RDW 15.3 H Plt Count 167 Sodium 141.7 Potassium 4.0 Chloride 104 Carbon Dioxide 29 Anion Gap 9 BUN 32 H Creatinine 0.98 Est GFR ( Amer) > 60 Est GFR (Non-Af Amer) 54 L Glucose 95 Calcium 9.4 Urine Color YELLOW Urine Appearance CLEAR Urine pH 6.0 Ur Specific [place] 1.031 Urine Protein NEGATIVE Urine Glucose (UA) NEGATIVE Urine Ketones NEGATIVE Urine Blood NEGATIVE Urine Nitrite NEGATIVE Ur Leukocyte Esterase NEGATIVE Urine WBC (Auto) 1 Urine RBC (Auto) 1 05/10/17 05/11/17 05/11/17 18:18 00:44 06:25 Troponin I < 0.012 < 0.012 < 0.012 Impressions: Chest/Abdomen CTA 05/10/17 00:00 IMPRESSION: Tiny area of chronic appearing embolus in the central lumen of the right lower lobe medial and posterior basilar segmental pulmonary arterial branch. No acute appearing emboli visualized in the main pulmonary arteries or the segmental branches. Chest X-Ray 05/10/17 13:09 IMPRESSION: Cardiomegaly. No acute changes. Qualifiers PATEINT BEING DISCHARGED WITH ANY OF THE FOLLOWING DIAGNOSIS?: VTE (PE or DVT) VTE patient discharged on overlapping Therapy?: No Reason(s) for not prescribing Overlap Therapy:: Not indicated - on eliquis Plan Time Spent: Greater than 30 Minutes
== END 2017-05-11 17:15 | disposition home health service (06) ==
LOC: ER 12:53 → EH 16:18 → UNDOADMOB 16:18 → 5 16:51 → EH 17:12 → 5 17:12
PROVIDERS: ADMIT Internal Medicine; ATTEND Internal Medicine
DX: I27.82 Chronic pulmonary embolism (principal); I27.2 Other secondary pulmonary hypertension; I13.0 Hypertensive heart and chronic kidney disease with heart failure and stage 1 through stage 4 chronic kidney disease, or unspecified chronic kidney disease; I50.9 Heart failure, unspecified; N18.3 Chronic kidney disease, stage 3 (moderate); E10.22 Type 1 diabetes mellitus with diabetic chronic kidney disease; E10.59 Type 1 diabetes mellitus with other circulatory complications; D64.9 Anemia, unspecified; E78.5 Hyperlipidemia, unspecified; E03.9 Hypothyroidism, unspecified; Z79.899 Other long term (current) drug therapy; Z79.82 Long term (current) use of aspirin; Z86.73 Personal history of transient ischemic attack (TIA), and cerebral infarction without residual deficits; Z79.4 Long term (current) use of insulin; Z91.81 History of falling; Z83.3 Family history of diabetes mellitus
CPT/HCPCS: 93005; 99285; 36415 ×2; 82962 ×2; 83735; 85025; 85027; 80048; 80053; 81001 ×2; 84484 ×2; 85379; 83880; 71010; 71275; 93010; 97163; G0378 ×2; A9270 ×12; J1650; J3490 ×2; G8978; G8979; G8980; J1815

== ENCOUNTER → 2019-05-03 | Outpatient (CLI) | payer MEDICARE, MEDICAID ==
[2019-05-03 10:08] LABS: ABSOLUTE EOSINOPHILS # (AUTO) 0.1 10^3/uL (0.0-0.6); ABSOLUTE LYMPHOCYTES (AUTO) 1.5 10^3/uL (0.5-4.7); ABSOLUTE MONOCYTES (AUTO) 0.6 10^3/uL (0.1-1.4); ABSOLUTE NEUT (AUTO) 3.1 10^3/uL (1.7-8.2); BASOPHILS % (AUTO) 0.9 % (0-2); EOSINOPHILS % (AUTO) 2.3 % (0-6); HEMATOCRIT 35.4 % (36.0-47.0); HEMOGLOBIN 11.5 g/dL (12.0-15.5); LYMPHOCYTES % (AUTO) 27.9 % (13-45); MEAN CORPUSCULAR HEMOGLOBIN 27.8 pg (27.0-33.4); MEAN CORPUSCULAR HGB CONC 32.3 g/dL (32.0-36.0); MEAN CORPUSCULAR VOLUME 86 fl (80-97); MONOCYTES % (AUTO) 11.5 % (3-13); PLATELET COUNT 237 10^3/uL (150-450); RED BLOOD COUNT 4.11 10^6/uL (3.72-5.28); SEGMENTED NEUTROPHILS % (AUTO) 57.4 % (42-78); TOTAL CELLS COUNTED % (AUTO) 100 %; WHITE BLOOD COUNT 5.3 10^3/uL (4.0-10.5)
[2019-05-03 10:27] LABS: APPEARANCE,URINE CLOUDY; BILIRUBIN,URINE NEGATIVE (NEGATIVE); COLOR,URINE YELLOW; GLUCOSE, URINE NEGATIVE (NEGATIVE); KETONES,URINE NEGATIVE (NEGATIVE); LEUKOCYTE ESTERASE,URINE LARGE (NEGATIVE); NITRITE,URINE POSITIVE (NEGATIVE); PROTEIN,URINE 30 mg/dL (NEGATIVE); URINE SPECIFIC GRAVITY 1.016; UROBILINOGEN,URINE NEGATIVE mg/dL (<2.0)
[2019-05-03 10:38] LABS: ALBUMIN 3.8 g/dL (3.5-5.0); ANION GAP 9 (5-19); BLOOD UREA NITROGEN 24 mg/dL (7-20); CALCIUM 9.1 mg/dL (8.4-10.2); CARBON DIOXIDE 31 mmol/L (22-30); CHLORIDE 100 mmol/L (98-107); GLUCOSE 190 mg/dL (75-110); PHOSPHORUS 3.6 mg/dL (2.5-4.5); POTASSIUM 4.6 mmol/L (3.6-5.0)
[2019-05-04 12:36] LABS: CREATININE URINE 100.4 mg/dL (Not Estab.); MICROALBUMIN URINE 44.6 ug/mL (Not Estab.)
== END ==
LOC: OD 09:33
PROVIDERS: ATTEND Internal Medicine Nephrology
DX: I12.9 Hypertensive chronic kidney disease with stage 1 through stage 4 chronic kidney disease, or unspecified chronic kidney disease (principal); N18.3 Chronic kidney disease, stage 3 (moderate); E11.22 Type 2 diabetes mellitus with diabetic chronic kidney disease; R80.9 Proteinuria, unspecified
CPT/HCPCS: 36415; 80069; 81001; 82043; 82306; 82570; 83970; 85025

== ENCOUNTER → 2019-08-29 | Outpatient (CLI) | payer MEDICARE, MEDICAID ==
[2019-08-29 09:16] LABS: ALBUMIN 3.8 g/dL (3.5-5.0); ALKALINE PHOSPHATASE 61 U/L (38-126); ANION GAP 7 (5-19); ASPARTATE AMINO TRANSFERASE 21 U/L (14-36); BILIRUBIN,DIRECT 0.2 mg/dL (0.0-0.4); BILIRUBIN,TOTAL 0.6 mg/dL (0.2-1.3); BLOOD UREA NITROGEN 17 mg/dL (7-20); CALCIUM 9.4 mg/dL (8.4-10.2); CARBON DIOXIDE 33 mmol/L (22-30); CHLORIDE 103 mmol/L (98-107); GLUCOSE 87 mg/dL (75-110); POTASSIUM 3.9 mmol/L (3.6-5.0); TOTAL PROTEIN 7.7 g/dL (6.3-8.2)
[2019-08-29 10:30] LABS: IRON(TIBC) 44.5 ug/dL (37-170)
[2019-08-30 13:37] LABS: CREATININE URINE 57.3 mg/dL (Not Estab.); MICROALBUMIN URINE 14.5 ug/mL (Not Estab.)
== END ==
LOC: OD 08:10
PROVIDERS: ATTEND Internal Medicine Nephrology
DX: I12.9 Hypertensive chronic kidney disease with stage 1 through stage 4 chronic kidney disease, or unspecified chronic kidney disease (principal); N18.3 Chronic kidney disease, stage 3 (moderate); E11.22 Type 2 diabetes mellitus with diabetic chronic kidney disease; D63.1 Anemia in chronic kidney disease; N25.81 Secondary hyperparathyroidism of renal origin; R80.9 Proteinuria, unspecified
CPT/HCPCS: 36415; 80053; 82043; 82570; 82607; 82728; 82746; 83540; 83550; 83970

== ENCOUNTER → 2019-12-19 | Outpatient (CLI) | payer MEDICARE, MEDICAID ==
--- NOTE | 2019-12-19 14:40 | RADIOLOGY REPORT (SQ) ---
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 Images reviewed with lung, soft tissue and bone windows. Reconstructed coronal and sagittal MPR images reviewed. All images st ored on PACS. All CT scanners at this facility use dose modulation, iterative reconstruction, and/or weight based d osing when appropriate to reduce radiation dose to as low as reasonably achievable (ALARA). [facility]: Dose Right [facility]: CareDose [facility]: Dose Right [facility]: Teradose 4D [facility]: [employer] RADIATION DOSE: CT Rad equipment meets quality standard of care and radiation dose reduction techniq ues were employed. CTDIvol: 5.2 - 7.1 mGy. DLP: 553 mGy-cm. mGy. LIMITATIONS: Motion artifact. FINDINGS: LUNGS AND PLEURA: No masses, infiltrates, or pneumothorax. No pleural effusions or pleura l calcifications. HILAR AND MEDIASTINAL STRUCTURES: No identified masses or abnormal nodes. No obvious aneurysm. HEART AND VASCULAR STRUCTURES: Cardiomegaly. No aneurysm. No pericardial effusion. UPPER ABDOMEN: See separate report of the CT of the abdomen. THYROID AND OTHER SOFT TISSUES: No masses. No adenopathy. BONES: Nothing acute. HARDWARE: None in the chest. OTHER: No other significant findings. IMPRESSION: No evidence of metastatic disease. TECHNICAL DOCUMENTATION: JOB ID: [id number] Quality ID # [id number]: Final reports with documentation of one or more dose reduction techniques (e.g., Au tomated exposure control, adjustment of the mA and/or kV according to patient size, use of iterative reconstruction technique) 2010 [employer]- All Rights Reserved Reading location - IP/workstation name: [email or web address]
--- NOTE | 2019-12-19 14:48 | RADIOLOGY REPORT (SQ) ---
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 Images reviewed with lung, soft tissue, and bone windows. Reconstructed coronal and sagittal MPR i mages reviewed. All images stored on PACS. All CT scanners at this facility use dose modulation, iterative reconstruction, and/or weight based d osing when appropriate to reduce radiation dose to as low as reasonably achievable (ALARA). [facility]: Dose Right [facility]: CareDose [facility]: Dose Right [facility]: Teradose 4D [facility]: [employer] RADIATION DOSE: mGy. LIMITATIONS: None. FINDINGS: LOWER CHEST: See separate report of the CT of the chest. NON-CONTRASTED LIVER, SPLEEN, ADRENALS: Evaluation limited by lack of IV contrast. No identified sign ificant masses. PANCREAS: No masses. No peripancreatic inflammatory changes. GALLBLADDER: Gallstones. No inflammatory changes to suggest cholecystitis. RIGHT KIDNEY AND URETER: Atrophic. Small cyst. No suspicious masses. Assessment limited by lack of IV contrast. No significant calcifications. No hydronephrosis or hydroureter. LEFT KIDNEY AND URETER: Multiple cysts measuring up to 10 cm. No suspicious masses. Assessment limit ed by lack of IV contrast. No significant calcifications. No hydronephrosis or hydroureter. AORTA AND RETROPERITONEUM: No aneurysm. No retroperitoneal masses or adenopathy. BOWEL AND PERITONEAL CAVITY: No obvious masses or inflammatory changes. No free fluid. APPENDIX: Not visualized. PELVIS, BLADDER, AND ABDOMINAL WALL: No abnormal pelvic masses. No abdominal wall hernias. Bladder un remarkable. BONES: Nothing acute. OTHER: No other significant finding. IMPRESSION: No evidence of metastatic disease. TECHNICAL DOCUMENTATION: JOB ID: [id number] Quality ID # [id number]: Final reports with documentation of one or more dose reduction techniques (e.g., Au tomated exposure control, adjustment of the mA and/or kV according to patient size, use of iterative reconstruction technique) 2010 [employer]- All Rights Reserved Reading location - IP/workstation name: [email or web address]
== END ==
LOC: RAD 13:46
PROVIDERS: ATTEND Internal Medicine Hematology & Oncology
DX: I26.99 Other pulmonary embolism without acute cor pulmonale (principal); C21.0 Malignant neoplasm of anus, unspecified
CPT/HCPCS: 71250; 74176

== ENCOUNTER → 2020-01-24 | Outpatient (CLI) | payer MEDICARE, MEDICAID ==
--- NOTE | 2020-01-24 13:13 | RADIOLOGY REPORT (SQ) ---
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 TECHNIQUE: Blood glucose level was verified. Above dose of FDG was injected intravenously. 2-D seg mented attenuation correction images were obtained from the base of the skull to the midthighs. Nonc ontrast CT images were obtained for attenuation correction and fusion with emission images. CT image s were performed without oral or intravenous contrast and are not sensitive for parenchymal lesions. A series of overlapping emission PET images were obtained. Images reviewed and manipulated at [facility] work station by the radiologist. Images stored on PACS. LIMITATIONS: None. FINDINGS: HEAD AND NECK: No areas of abnormal metabolic activity in the soft tissues of the head and neck. CHEST: No areas of abnormal metabolic activity in the chest. ABDOMEN AND PELVIS: Intense uptake at the level the rectum. SUV is measured at 8.7. No other areas of abnormal activity. PROXIMAL LOWER EXTREMITIES: No areas of abnormal metabolic activity in the soft tissues of the lower extremities. BONES: No abnormal metabolic activity in the visualized skeleton. ADDITIONAL CT FINDINGS: Small atrophic right kidney. Cystic left kidney. OTHER: No other significant findings. 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 SUV is measured a t 8.7. No evidence of distant metastases. Small atrophic right kidney. Cystic left kidney. TECHNICAL DOCUMENTATION: JOB ID: [id number] 2010 [employer]- All Rights Reserved Reading location - IP/workstation name: [email or web address]
== END ==
LOC: RAD 07:58
PROVIDERS: ATTEND Radiology Radiation Oncology
DX: C20 Malignant neoplasm of rectum (principal)
CPT/HCPCS: 78815; A9552